=== PATIENT | male | born 1980 | race Caucasian/White ===

== ENCOUNTER → 2021-02-05 | Outpatient (CLI) | payer BC ==
[~2021-02-05] MED LIST: AZTH250C PO; HYDR1TAB PO; METH4TAB PO; PRD20T PO
[2021-02-05 13:19] LABS: SEMEN VOLUME 2.3 ML (1.5-5.0)
== END ==
LOC: LAB 10:28
PROVIDERS: ATTEND Internal Medicine
DX: N53.19 Other ejaculatory dysfunction (principal)
CPT/HCPCS: 89320